=== PATIENT | female | born 1965 | race American Indian/Alaskan Native ===

== ENCOUNTER 2018-12-20 06:47 | Day surgery (SDC) | payer BC ==
[~2018-12-20 06:47] MED LIST: ANCEF/STERILE WATER 2 GM/20 ML IV NR
[2018-12-20] MEDS ORDERED: SUBLIMAZE IV PRN (07:55)
[2018-12-20] MEDS ORDERED: ZOFRAN IV PRN (07:55)
--- NOTE | 2018-12-20 07:58 | Anesthesia Day of Surgery ---
Anesthesia Day of Surgery - Day of Surgery Patient Examined: Yes Patient H&P Reviewed: Yes Patient is NPO: Yes
[2018-12-20] MEDS ORDERED: LACTATED RINGERS 1,000 ML IV SCH (08:00)
--- NOTE | 2018-12-20 08:01 | Anesthesia Consultation ---
Anesthesia Consult and Med Hx Date of service: 12/20/18 - Airway Anesthetic Teeth Evaluation: Chipped ROM Head & Neck: Adequate Mental/Hyoid Distance: Adequate Mallampati Class: Class II Intubation Access Assessment: Probably Good - Pre-Operative Health Status ASA Pre-Surgery Classification: ASA2 Proposed Anesthetic Plan: General - Pulmonary Hx Smoking: No Hx Sleep Apnea: No (CORTNEY PRE SCREEN LOW RISK) - Cardiovascular System Hx Hypertension: No (Can climb two flights of stairs) Hx Valvular Heart Disease: Yes (MVP-palpitations. ETT 2 years ago ok per pt) - Central Nervous System Hx Back Pain: Yes - Hematic Hx Anemia: Yes (2016) - Other Systems Hx Cancer: No
[2018-12-20] MEDS ORDERED: DIPRIVAN 10 MG/ML IV ONE (08:21)
[2018-12-20] MEDS ORDERED: SUBLIMAZE ONE (08:22)
[2018-12-20] MEDS ORDERED: XYLOCAINE MPF 2% ONE (08:30)
[2018-12-20] MEDS ORDERED: ZOFRAN ONE (08:30)
[2018-12-20] MEDS ORDERED: WATER FOR IRRIG STERILE IR ONE (08:52)
[2018-12-20] MEDS ORDERED: VERSED IV NR (09:00)
--- NOTE | 2018-12-20 09:43 | Short Stay Summary ---
Short Stay Documentation Date of service: 12/20/18 - History H&P: obtained from office - Allergies and Medications Current Medications: Allergies No Known Allergies Allergy (Verified 05/31/18 22:39) Home Medications Medication Instructions Recorded Confirmed Last Taken Type Ketorolac [Toradol] 10 mg PO Q6H PRN #20 tablet 06/01/18 12/15/18 Unknown Rx Ciprofloxacin HCl [Ciprofloxacin 500 mg PO Q12HR 12/15/18 12/15/18 Unknown History TAB] HYDROcodone/APAP 5-325 [Withams 1 each PO Q6HR PRN 12/15/18 12/15/18 Unknown History 5/325] Ibuprofen [Motrin] 800 mg PO Q8HR PRN 12/15/18 12/15/18 Unknown History Ondansetron [Zofran TAB] 4 mg PO Q8HR PRN 12/15/18 12/15/18 Unknown History Active Medications Cefazolin Sodium (Ancef/Sterile Water 2 Gm/20 Ml) 2 gm IV PREOP NR Stop: 12/20/18 23:00 Fentanyl (Sublimaze) 50 mcg IV Q5MIN PRN PRN Reason: Pain , Severe (7-10) Stop: 12/20/18 20:00 Lactated Ringer's (Lactated Ringers) 1,000 mls @ 125 mls/hr IV DIRECT RAOUL Midazolam HCl (Versed) 2 mg IV PREOP NR Stop: 12/20/18 23:59 Ondansetron HCl (Zofran) 4 mg IV ONCE PRN PRN Reason: Nausea And Vomiting Stop: 12/20/18 13:00 - Brief post op/procedure progress note Date of procedure: 12/20/18 Pre-op diagnosis: left distal stone Post-op diagnosis: same Procedure: cysto, rpg, ureteroscopy, stent with external string (6x24), basket stone Anesthesia: GETA Surgeon: BRYAN HUNTER Estimated blood loss: none Condition: stable - Hospital course Hospital course: stone,cipro,norco, post op info on chart - Disposition Condition at discharge: Stable Disposition: DC-01 TO HOME OR SELFCARE Short Stay Discharge Plan Follow up with: BRI CHEUNG MD [Primary Care Provider] - 7 Days
--- NOTE | 2018-12-20 10:19 | Fluoroscopy Report ---
FLUOROSCOPY RETROGRADE UROGRAPHY HISTORY: Left ureteral stone. FINDINGS: Fluoroscopy was provided by radiology during retrograde urography by the urologist. 9 fluor oscopic images were saved. 43 seconds of fluoroscopy time were utilized. The images demonstrate a mildly obstructing stone in the distal left ureter. The proximal left ureter was not entirely opacified. Subsequent images demonstrate left ureteroscopy. The distal left uretera l stone was removed with use of a basket. A left ureteral stent was placed which adequately drains th e left collecting system on the final image. Please correlate with the procedural report as needed. Images of the right retrograde pyelogram are normal. IMPRESSION: Distal left ureteral stone removal. Left ureteral stent placement. Signer Name: Ash Kurtz Jr, MD Signed: 12/20/2018 10:15 AM Workstation Name: [id number]
[2018-12-20 11:01] VITALS: BP 122/76
--- NOTE | 2018-12-20 14:37 | Operative Report ---
PREOPERATIVE DIAGNOSIS: Left distal ureteral stone. POSTOPERATIVE DIAGNOSIS: Left distal ureteral stone. PROCEDURE: Cystoscopy, bilateral retrograde pyelograms, left rigid ureteroscopy, basket stone extraction with a 6-Macedonian 24-cm stent with an external string. SURGEON: Francisco Javier Rubio MD ANESTHESIA: General. ESTIMATED BLOOD LOSS: Minimal. FLUIDS: Crystalloid. COMPLICATIONS: No complications. INDICATIONS: This patient is a 53-year-old female seen earlier this year with a right kidney stone which apparently she passed. She had some small left kidney stones, was lost to followup, presented to the office last week with significant left flank pain. She also has a history of lumbar spine disease and sees an orthopedist and chiropractor. In the office, she had left flank pain and hematuria. We discussed options. She agreed to proceed with surgical intervention. We also get a Litholink. She has Cipro, Armbrust, and Ultram. DESCRIPTION OF PROCEDURE: The patient was taken to the operative suite, placed in a supine position, after adequate general anesthesia placed in a dorsal lithotomy position, prepped and draped in a sterile fashion. Pancystourethroscopy was performed with a 22-Macedonian Storz cystoscope. No bladder pathology. No tumors or stones were noted. Bilateral retrograde pyelograms were obtained with an 8-Macedonian Anasco catheter and 8 mL of contrast. No filling defects or obstruction on the right. There is a small calcification in the area of the ureter on the left side, suspicious for stone. Therefore, two 0.035 Glidewire were placed in the left ureter under fluoroscopic guidance. Rigid ureteroscopy, stone could be appreciated approximately 1 cm proximal to the ureteral orifice. A 3-Macedonian Judy basket was used. The stone was extracted and will be given to the patient. Rigid ureteroscopy up to the renal pelvis. No other stones could be appreciated. A 6-Macedonian 24-cm double-J stent was placed with an external string. Bladder was drained. She was extubated and taken to recovery room in stable condition. JOB# [id number] [facility] [place]
--- NOTE | 2018-12-20 17:00 | Post Anesthesia Evaluation ---
- Post Anesthesia Evaluation Patient Participated: Yes Airway Patent: Yes Stable Respiratory Function: Yes Nausea/Vomiting: No Temp > 96.8F: Yes Pain Manageable: Yes Adequeate Hydration: Yes Anesthesia Complications: No
== END 2018-12-20 06:48 | disposition home or self-care (01) ==
LOC: OR 06:47
PROVIDERS: ATTEND Urology
DX: N20.1 Calculus of ureter (principal); F41.9 Anxiety disorder, unspecified; Z79.899 Other long term (current) drug therapy; Z86.2 Personal history of diseases of the blood and blood-forming organs and certain disorders involving the immune mechanism
CPT/HCPCS: 52332; 52352; 74420; A4217; C1758; C1769; C2617; J0690; J2250; J2405; J2704; J3010; J7120; Q9967